=== PATIENT | female | born 1990 | race Two or more races ===

== ENCOUNTER 2025-02-01 06:46 | Day surgery (SDC) | payer OTHER ==
[2025-01-27 14:21] VITALS: BMI 38.2
[2025-02-01] MEDS ORDERED: LIDOCAINE HCL/PF 2% SDV 5ML VIAL ONE (11:48)
[2025-02-01] MEDS ORDERED: MIDAZOLAM HCL 2 MG/2 ML SINGLE DOSE VIAL ONE (11:49)
[2025-02-01] MEDS ORDERED: PROPOFOL 20 ML ONE (11:49)
[2025-02-01] MEDS ORDERED: ONDANSETRON 4 MG/2 ML VIAL ONE (12:21)
[2025-02-01] MEDS ORDERED: DEXAMETHASONE SOD PHOSPHATE 4 MG/1 ML VIAL ONE (12:21)
[2025-02-01] MEDS ORDERED: KETOROLAC TROMETHAMINE 30 MG/1 ML VIAL ONE (12:21)
[2025-02-01] MEDS ORDERED: PROMETHAZINE HCL 25 MG/1 ML VIAL IVPB PRN (13:01)
[2025-02-01] MEDS ORDERED: ONDANSETRON 4 MG/2 ML VIAL IVPUSH PRN (13:01)
[2025-02-01] MEDS ORDERED: ACETAMINOPHEN INJECTION 100 ML ONE (13:08)
[2025-02-01] MEDS: ACETAMINOPHEN 1000 MG/100 ML BAG IVPB ONE (13:10)
[2025-02-01] MEDS: LACTATED RINGERS SOLUTION 1,000 ML IV SCH (13:10)
[2025-02-01 14:29] VITALS: RESP 18
[2025-02-01 16:32] VITALS: BP 111/66; PULSE 69; TEMP 97.5
== END 2025-02-01 14:05 | disposition home or self-care (01) ==
LOC: JASU-SURG 06:46
PROVIDERS: ATTEND Obstetrics & Gynecology
PROC: 0UB98ZZ Excision of Uterus, Via Natural or Artificial Opening Endoscopic (ICD-10-PCS; principal; 2025-02-01 11:00)
DX: N93.9 Abnormal uterine and vaginal bleeding, unspecified (principal); N84.0 Polyp of corpus uteri; E66.9 Obesity, unspecified; N97.9 Female infertility, unspecified
CPT/HCPCS: 82962; 86850; 86900; 86901; 88305-TC; 94760